=== PATIENT | male | born 1985 | race Caucasian/White ===

== ENCOUNTER 2020-06-15 14:50 | Emergency (ER) | payer SELFPAY ==
[2020-06-15 15:03] VITALS: BP 136/79; PULSE 88; RESP 18; TEMP 36.8; O2SAT 97
--- NOTE | 2020-06-15 15:05 | ED.SKABFB ---
HPI - Skin/Abscess/Foreign Bdy General Chief complaint: Skin/Abscess/Foreign Body Stated complaint: Poison Madie Time Seen by Provider: 06/15/20 15:05 Source: patient and RN notes reviewed History of Present Illness HPI narrative: Patient is a 35-year-old male who presents the urgent care with complaints of a rash to bilateral arms and abdomen. Patient states that he bought some houses recently and was cutting down what he believes to be poison madie . Patient states him and his friend both got the rash. States it is very itchy and he has been taking a lot of Benadryl over the last 2 days for itch relief. No other acute complaints. No acute distress noted. Patient aware of the plan of care. Some parts of this dictation were generated by voice recognition software and may contain typographical and/or grammatical inaccuracies. Related Data Allergies Allergy/AdvReac Type Severity Reaction Status Date / Time No Known Allergies Allergy Unknown Verified 06/15/20 15:09 Review of Systems Review of Systems: Narrative: CONSTITUTIONAL: Denies fever, chills, or sweats. EYES: Denies visual changes, redness, or discharge. ENT: Denies rhinorrhea, congestion, sore throat, or otalgia. CARDIOVASCULAR: Denies chest pain, palpitations, or edema. RESPIRATORY: Denies cough or dyspnea. GASTROINTESTINAL: Denies abdominal pain, nausea, vomiting, or diarrhea. GENITOURINARY: Denies dysuria or hematuria. SKIN: Reports of an itchy fine rash to bilateral arms and abdomen MUSCULOSKELETAL: Denies back pain, joint pain, or myalgia. NEUROLOGIC: Denies headache, numbness, or weakness. All other systems reviewed are negative, except as documented in HPI. PMFSH Comments At the time of my signature, I reviewed and agree with the nursing past medical, surgical, social, and family history. There is no relevant family history pertinent to the patient complaint. Exam Narrative: Exam Narrative: GENERAL: This is a well-nourished, well-developed patient, in no apparent distress. HEAD: normocephalic, atraumatic. EYES: PERRL. Sclera clear/white. Vision is grossly intact. EARS: External ears normal NOSE: External nose normal with no obvious nasal discharge, nares without redness, no rhinorrhea. THROAT: Mucous membranes moist NECK: Neck supple SKIN: Scattered pruritic fine dermatitis noted to bilateral lower arms and left side of the abdomen NEURO: awake, alert, and oriented to person, place and time. There were no obvious focal neurologic abnormalities. EXTREMITIES: No clubbing, cyanosis, or edema. Course Vital Signs Vital signs: Vital Signs Temperature 98.3 F 06/15/20 15:03 Pulse Rate 88 06/15/20 15:03 Respiratory Rate 18 06/15/20 15:03 Blood Pressure 136/79 06/15/20 15:03 Pulse Oximetry 97 06/15/20 15:03 Temperature 98.3 F 06/15/20 15:03 Pulse Rate 88 06/15/20 15:03 Respiratory Rate 18 06/15/20 15:03 Blood Pressure 136/79 06/15/20 15:03 Pulse Oximetry 97 06/15/20 15:03 Reviewed MDM - Skin/Abscess/Foreign Bdy MDM Narrative Medical decision making narrative: Advised the patient to complete steroid regimen as prescribed. Use prescription cream to the affected areas avoiding the face, groin, underarms. Be sure to eat and drink with the oral medication. Make sure the clothing you are wearing when in contact with the IV has been washed before you rewear it. Wash your bedding and wipe down the car seat you have been sitting on. May continue to use Benadryl as needed intermittently for itch relief. Use cold compress as needed for comfort. Follow-up with your PCP within 2 to 5 days or for worsening symptoms or failure to improve. Differential Diagnosis Differential diagnosis: Likely abscess of skin or subcutaneous tissue, urticaria, herpes zoster, cellulitis, eczema and impetigo Critical Care Time Critical Care Time Critical Care Time: No Discharge Plan Discharge Clinical Impression: Rhus dermatitis Patient Disposition:
== END 2020-06-15 15:29 | disposition home or self-care (01) ==
PROVIDERS: Emergency Provider Nurse Practitioner Family
DX: L23.7 Allergic contact dermatitis due to plants, except food (principal)
CPT/HCPCS: 99213; G0463

== ENCOUNTER 2022-02-04 19:21 | Emergency (ER) | payer OTHER, SELFPAY ==
[2022-02-04 19:27] VITALS: BP 149/87; PULSE 95; RESP 20; TEMP 36.3; O2SAT 97
--- NOTE | 2022-02-04 20:00 | ED_ITS ---
HPI - Skin/Abscess/Foreign Bdy General Chief complaint: Skin/Abscess/Foreign Body Stated complaint: knot on back of head Time Seen by Provider: 02/04/22 19:53 History of Present Illness HPI narrative: Pt presents with tender lump on back of head which has increased in size over last 4 days. Pt denies fever or drainage. Related Data Allergies Allergy/AdvReac Type Severity Reaction Status Date / Time No Known Allergies Allergy Unknown Verified 02/04/22 19:29 Review of Systems Review of Systems: All systems reviewed & are unremarkable except as noted in HPI and below Exam Const: General: healthy appearing and no acute distress Nutritional Appearance: well nourished Orientation/consciousness: patient oriented x3 Limitations: no limitations HENMT: Head: normal to inspection (2 cm in diameter abscess to occiput) Cardio: Rate: regular rate Rhythm: regular rhythm Skin: Wounds: wounds noted (abscess to posterior scalp as noted above) Neuro: General: patient oriented x3, moves all extremities, no meningeal signs and no focal motor deficits Speech: normal speech Extrem: General: normal to inspection and no clubbing, cyanosis or edema Psych: Mental Status: mental status grossly normal Affect: normal affect Attitude: cooperative Course Vital Signs Vital signs: Vital Signs Temperature 97.3 F L 02/04/22 19:27 Pulse Rate 95 02/04/22 19:27 Respiratory Rate 20 02/04/22 19:27 Blood Pressure 149/87 H 02/04/22 19:27 Pulse Oximetry 97 02/04/22 19:27 Oxygen Delivery Room Air 02/04/22 19:27 Temperature 97.3 F L 02/04/22 19:27 Pulse Rate 95 02/04/22 19:27 Respiratory Rate 20 02/04/22 19:27 Blood Pressure 149/87 H 02/04/22 19:27 Pulse Oximetry 97 02/04/22 19:27 Oxygen Delivery Room Air 02/04/22 19:27 Procedures Abscess I/D scalp: Date of Incision: 02/04/22 Time of Incision: 20:12 Local Anesthetic: lidocaine 1% Amount of anesthesia used (mL): 5 Technique: incised with #11 blade Amount of fluid expressed (mL): 6 I&D Results: Pus Complications: bleeding (minimal) Discharge Plan Discharge Clinical Impression: Abscess of skin or subcutaneous tissue Patient Disposition: Home, Self-Care Condition: Improved Instructions: Antibiotic Form, Abscess (ED) Prescriptions: New sulfamethoxazole-trimethoprim [Bactrim DS] 800-160 mg tablet 1 tablet PO Q12H Qty: 20 0RF No Action methylprednisolone [Medrol (Renaldo)] 4 mg tablets,dose pack See Rx Instructions .ROUTE .COMPLEX Qty: 21 0RF Rx Instructions: orally per package directions triamcinolone acetonide 0.5 % cream 1 applic topical BID Qty: 15 0RF Follow-up/Referrals: PHYSICIAN,SECURITY COMPLIANCE SPECIALIST [Primary Care Provider] -
== END 2022-02-04 20:42 | disposition home or self-care (01) ==
PROVIDERS: Emergency Provider Emergency Medicine
DX: L02.212 Cutaneous abscess of back [any part, except buttock and flank] (principal)
CPT/HCPCS: 10060; 99283